=== PATIENT | female | born 1960 | race American Indian/Alaskan Native ===

== ENCOUNTER 2017-05-03 16:07 | Emergency (ER) | payer MEDICARE ==
[2017-05-03 16:23] VITALS: BP 118/79
--- NOTE | 2017-05-04 09:10 | XRay Report ---
Left ankle: Trauma, pain. There is an oblique nondisplaced fracture through the distal fibula shaft at the junction with the metaphysis. A small avulsion of bone is identified from the medial malleolus. The joint space between the medial malleolus and tail as may be widened. No additional bone or joint abnormality. Mild soft tissue swelling noted. Impression: Bimalleolar fractures.
== END 2017-05-03 18:15 | disposition left against medical advice (07) ==
LOC: ED 16:07
DX: M25.572 Pain in left ankle and joints of left foot (principal); E11.9 Type 2 diabetes mellitus without complications; F17.200 Nicotine dependence, unspecified, uncomplicated; Z88.0 Allergy status to penicillin; Z53.21 Procedure and treatment not carried out due to patient leaving prior to being seen by health care provider